=== PATIENT | male | born 1965 | race Caucasian/White ===

== ENCOUNTER 2017-08-28 21:27 | Emergency (ER) | payer SELFPAY ==
[~2017-08-28] VITALS: Ht 193 cm; Wt 154.2 kg
--- NOTE | 2017-08-28 22:00 | NUR ---
PT PRESENTED TO THE ER WITH FLU LIKE SYMPTOMS. PT IS C/O CHRONIC BACK PAIN AND SOB. PT TAKEN TO ROOM #2. PT IS ON THE MONITOR AND CONTINUOUS PULSE OX.
[2017-08-28] MEDS ORDERED: Magnesium 1GM/D5W 100ML PREMIX 200 ML IV ONE ×2 (22:05→22:26)
--- NOTE | 2017-08-28 22:23 | NUR ---
IV STARTED IN LAC. BLOOD WAS DRAWN AND SENT TO LAB.
[2017-08-28] MEDS ORDERED: ACETAMINOPHEN ES 500 MG TABLET ONE (22:25)
[2017-08-28] MEDS ORDERED: methylPREDNISolone SOD SUCC 125 MG/2ML VIAL ONE (22:25)
[2017-08-28] MEDS ORDERED: HYDROCHLOROTHIAZIDE 25 MG TABLET ONE (22:26)
[2017-08-28] MEDS ORDERED: ALBUTEROL FS 2.5 MG/3 ML VIAL.NEB CONTNEB ONE (22:30)
[2017-08-28] MEDS ORDERED: ACETAMINOPHEN ES 500 MG TABLET PO ONE (22:30)
[2017-08-28] MEDS ORDERED: methylPREDNISolone SOD SUCC 125 MG/2ML VIAL IV ONE (22:30)
[2017-08-28] MEDS ORDERED: IV NS 0.9% 1,000 ML BAG IV ONE (22:30)
[2017-08-28] MEDS ORDERED: IBUPROFEN 600 MG TABLET PO ONE (22:30)
[2017-08-28] MEDS ORDERED: HYDROCHLOROTHIAZIDE 25 MG TABLET PO ONE (22:30)
--- NOTE | 2017-08-28 22:40 | NUR ---
URINE SAMPLE OBTAINED AND LAB CALLED FOR P/U.
[2017-08-28 22:48] LABS: BASOPHILS % (AUTO) 0.3 % (0.0-2.0); EOSINOPHILS % (AUTO) 0.1 % (0.0-6.0); HEMATOCRIT 44 % (39-51); LYMPHOCYTES # (AUTO) 0.6 /CMM (0.8-4.8); LYMPHOCYTES % (AUTO) 8.3 % (20.0-44.0); MEAN CORPUSCULAR HEMOGLOBIN 32 PG (26.0-33.0); MEAN CORPUSCULAR HGB CONC 34 g/dl (31.0-36.0); MEAN CORPUSCULAR VOLUME 93 fL (80-96); MONOCYTES # (AUTO) 0.6 /CMM (0.1-1.30); MONOCYTES % (AUTO) 8.7 % (2.0-12.0); NEUTROPHILS # (AUTO) 5.6 /CMM (1.8-8.9); NEUTROPHILS % (AUTO) 82.6 % (43.0-81.0); PLATELET COUNT (AUTO) 125 /CMM (150-450); RDW COEFFICIENT OF VARIATION 13.9 (11.5-15.0); RED BLOOD CELL COUNT(AUTO) 4.73 MIL/uL (4.5-6.0); WHITE BLOOD COUNT (AUTO) 6.7 K/uL (4.3-11.0)
[2017-08-28] MEDS ORDERED: ALBUTEROL FS 2.5 MG/3 ML VIAL.NEB ONE (22:50)
[2017-08-28 23:00] LABS: APPEARANCE,URINE CLEAR (CLEAR); BILIRUBIN,URINE NEGATIVE (NEGATIVE); BLOOD, URINE TRACE-INTA Ery/uL (NEGATIVE); COLOR,URINE YELLOW (YELLOW); KETONES,URINE TRACE (NEGATIVE); LEUKOCYTE ESTERASE ,URINE NEGATIVE (NEGATIVE); NITRITE, URINE NEGATIVE (NEGATIVE); PROTEIN,URINE 2+ mg/dl (NEGATIVE); UGLUCOSE NEGATIVE (NEGATIVE)
[2017-08-28 23:04] LABS: CALCIUM, SERUM 8.7 mg/dL (8.5-10.1); POTASSIUM 3.9 mmol/L (3.5-5.1)
[2017-08-28 23:05] LABS: BILIRUBIN,DIRECT 0.1 mg/dL (0.0-0.2); BILIRUBIN,TOTAL 0.4 mg/dL (0.2-1.0)
[2017-08-28 23:06] LABS: ALBUMIN 3.5 g/dL (3.4-5.0)
--- NOTE | 2017-08-28 23:15 | NUR ---
PT AMBULATED TO THE BATHROOM.
[2017-08-28 23:29] LABS: BACTERIA,URINE None seen /HPF (None Seen); RBC,URINE 0-2 /HPF (0-2); SQUAMOUS EPITHELIAL CELL,UR Few /HPF (None Seen); WBC,URINE 0-2 /HPF (0-3)
[2017-08-28] MEDS ORDERED: OSELTAMIVIR PHOSPHATE 75 MG CAPSULE ONE (23:59)
[2017-08-29] MEDS ORDERED: OSELTAMIVIR PHOSPHATE 75 MG CAPSULE PO ONE
[2017-08-29] MEDS ORDERED: predniSONE 20 MG TABLET ONE (00:17)
--- NOTE | 2017-08-29 00:20 | NUR ---
PT SPOKE TO [facility] AND DECIDED TO LEAVE AMA.
--- NOTE | 2017-08-29 00:57 | NUR ---
IV removed. Catheter intact and site benign. Pressure and 4x4 applied to site. No bleeding noted.Patient does not wish to proceed with medical care recommended by [facility] RIVERA. Patient given information related to possible complications, up to and including , which could occur as a result of leaving the hospital at this time. Patient verbalizes understanding of risks involved due to leaving against medical advice. Patient has signed AMA form. FORM IS IN THE CHART.
[2017-08-29 01:04] VITALS: BP 176/95
== END 2017-08-29 01:05 | disposition left against medical advice (07) ==
LOC: ER 21:31
DX: J11.1 Influenza due to unidentified influenza virus with other respiratory manifestations (principal); J44.9 Chronic obstructive pulmonary disease, unspecified; I10 Essential (primary) hypertension; Z59.0 Homelessness
CPT/HCPCS: 36415; 71010; 80048; 80076; 81001; 84484; 85025; 87804 ×2; 93005; 94640; 96365; 96367; 96375; 99285; A4606; J2930; J3475; J7030; J7512; Z7610; 81000-TC; 87400